=== PATIENT | male | born 1960 | race Caucasian/White ===

== ENCOUNTER → 2024-05-12 10:01 | Outpatient (CLI) | payer OTHER, SELFPAY ==
--- NOTE | 2024-05-12 10:03 | DI.MRI.S_ITS ---
PROCEDURE: MR PELVIC PROSTATE PROTOCOL INDICATIONS: Elevated PSA TECHNIQUE: Coronal HASTE, axial T1 FSE with fat saturation, 3-plane nonbreath-hold T2 FSE. After the administration of contrast, dynamic axial, delayed axial and coronal VIBE or 2-D FLASH with fat saturation through the pelvis. Diffusion weighted imaging and ADC was performed. COMPARISON: None. FINDINGS: Image quality: Diffusion weighted and dynamic contrast enhanced images are diagnostic. Prostate: 5 x 6 x 6 cm. Estimated volume is 94 cc. PSA was not provided to calculate density. Transitional zone heterogenous nodules are present, either well encapsulated or mostly encapsulated, compatible with PI-RADS 1 or 2 likely BPH nodules. Mildly T2 hypointense heterogenous striated appearance of the peripheral zone is commonly seen with current or prior prostatitis, PI-RADS 2. Right anterior mid gland transitional zone region of possible lentiform signal abnormality measures 1.2 x 0.8 x 0.6 cm. T2 score 3. DWI score 3. DCE positive. PI-RADS 3. (4/16, 5/9, 24/16). No definite extracapsular disease. Left greater right atrophy of the seminal vesicles. Genitourinary system: Bladder wall thickness is normal. Distal ureters are non distended. Bowel and peritoneum: No small bowel obstruction in the lower abdomen. Colonic diverticula are seen. Nodes and vessels: No pathologic lymph nodes by size criteria. No aneurysmal artery identified in the field of Soft tissues: Unremarkable pelvic wall Bones: No suspicious osseous enhancement. IMPRESSION: Prostatomegaly and sequelae of BPH. No suspicious PI-RADS 4 or 5 lesions. Possible region of signal abnormality with partial lentiform shape is seen in the right anterior transitional zone in the mid gland measuring up to 1.2 x 0.8 cm. PI-RADS 3. No pelvic lymphadenopathy by size criteria. No enhancing suspicious bone lesions. Dictated by: Juan Puentes M.D. on 05/12/2024 at 11:08 Approved by: Juan Puentes M.D. on 05/12/2024 at 11:15
== END ==
PROVIDERS: PCP Family Medicine; Referring Provider Urology; Visit Provider Urology
DX: N40.0 Benign prostatic hyperplasia without lower urinary tract symptoms (principal); R97.20 Elevated prostate specific antigen [PSA]; K57.90 Diverticulosis of intestine, part unspecified, without perforation or abscess without bleeding
CPT/HCPCS: 72197; A9579